=== PATIENT | male | born 1995 | race Two or more races ===

== ENCOUNTER 2021-07-27 13:22 | Emergency (ER) | payer SELFPAY ==
--- NOTE | 2021-07-27 13:45 | EDM.PDOC ---
ED HPI GENERAL MEDICAL PROBLEM - General Stated Complaint: COUGHING UP BLOOD Time Seen by Provider: 07/27/21 13:30 Source of Information: Reports: Patient History Limitations: Reports: No Limitations - History of Present Illness INITIAL COMMENTS - FREE TEXT/NARRATIVE: Patient presented to the ED because of hemoptysis X 2. He was coughing forcefully and then coughed out a small amount of bright red blood. There is no fever, chills or sputum production. He smoke 2 PPD and don't have any plans of quitting. - Related Data Allergies Allergy/AdvReac Type Severity Reaction Status Date / Time No Known Allergies Allergy Verified 07/27/21 14:24 Home Meds: Home Meds Azithromycin [Zithromax] 500 mg PO DAILY #5 tab 07/27/21 [Rx] ED ROS GENERAL - Review of Systems Review Of Systems: See Below Constitutional: Reports: No Symptoms HEENT: Reports: No Symptoms Respiratory: Reports: Cough Cardiovascular: Reports: No Symptoms Endocrine: Reports: No Symptoms GI/Abdominal: Reports: No Symptoms : Reports: No Symptoms Musculoskeletal: Reports: No Symptoms Skin: Reports: No Symptoms Neurological: Reports: No Symptoms Psychiatric: Reports: No Symptoms ED EXAM, GENERAL - Physical Exam Exam: See Below Exam Limited By: No Limitations General Appearance: Alert, No Apparent Distress Ears: Normal External Exam, Normal Canal Nose: Normal Inspection, Normal Mucosa, No Blood Throat/Mouth: Normal Inspection, Normal Lips, Normal Teeth Head: Atraumatic, Normocephalic Neck: Normal Inspection, Supple, Non-Tender, Full Range of Motion Respiratory/Chest: No Respiratory Distress, Lungs Clear, Normal Breath Sounds, No Accessory Muscle Use, Chest Non-Tender Cardiovascular: Normal Peripheral Pulses, Regular Rate, Rhythm, No Edema, No Gallop, No JVD, No Murmur, No Rub GI/Abdominal: Normal Bowel Sounds, Soft, Non-Tender, No Organomegaly, No Distention, No Abnormal Bruit, No Mass Back Exam: Normal Inspection, Full Range of Motion Extremities: Normal Inspection, Normal Range of Motion, Non-Tender, No Pedal Edema, Normal Capillary Refill Neurological: Alert, Oriented, CN II-XII Intact, Normal Cognition, Normal Gait, Normal Reflexes, No Motor/Sensory Deficits Psychiatric: Normal Affect Course - Vital Signs Text/Narrative:: CXR-negative Last Recorded V/S: Last Vital Signs Temp 36.6 C 07/27/21 13:22 Pulse 96 07/27/21 13:22 Resp 20 07/27/21 13:22 BP 142/67 H 07/27/21 13:22 Pulse Ox 96 07/27/21 13:22 Departure - Departure Time of Disposition: 13:40 Disposition: Home, Self-Care 01 Condition: Good Clinical Impression: Acute bronchitis, Hemoptysis - Discharge Information Prescriptions: Azithromycin [Zithromax] 500 mg PO DAILY #5 tab Instructions: Hemoptysis, [id number], Acute Bronchitis, Adult, [id number] Referrals: PCP,None [Primary Care Provider] - Forms: ED Department Discharge Additional Instructions: Please read discharge instructions on acute bronchitis and hemoptysis Try to quit smoking Drink 2 liters of water daily Zithromax 500 mg daily for 5 days Follow up as needed Sepsis Event Note (ED) - Focused Exam Vital Signs: Vital Signs Temp Pulse Resp BP Pulse Ox 07/27/21 13:22 36.6 C 96 20 142/67 H 96
--- NOTE | 2021-07-27 16:12 | CR ---
CHEST ONE VIEW INDICATION: Cough, hemoptysis, smoker x10 years two packs per day. FINDINGS: Portable AP upright view of the chest with two images - no comparisons. Heart, mediastinum and bony thorax are unremarkable. An active infiltrate or effusion was not identified. IMPRESSION: No acute process. MTDD
== END 2021-07-27 13:56 | disposition home or self-care (01) ==
LOC: FB.ED 13:22
DX: J20.9 Acute bronchitis, unspecified (principal); R04.2 Hemoptysis
CPT/HCPCS: 71045; 99283-25